=== PATIENT | female | born 1970 ===

== ENCOUNTER → 2021-08-02 | Outpatient (CLI) | payer BC ==
--- NOTE | 2021-08-04 11:24 | MM ---
Reason for exam: screening (asymptomatic). History: Benign excisional biopsy of the right breast, 2014. Physical Findings: A clinical breast exam by your physician is recommended on an annual basis and results should be correlated with mammographic findings. MG 3D Screening Mammo W/Cad Bilateral CC and MLO view(s) were taken. No prior studies available for comparison. The breast tissue is extremely dense which could obscure a lesion on mammography. Finding #1: Architectural distortion in the lower quadrant, posterior position of the right breast consistent with known excision changes. Finding #2: There are typically benign round calcifications in both breasts. ASSESSMENT: Benign, BI-RAD 2 RECOMMENDATION: Routine screening mammogram of both breasts in 1 year. Some advise bilateral ultrasound surveillance in patient with dense tissue.
== END | disposition home or self-care (01) ==
LOC: RADMAMWWP 14:49
PROVIDERS: ATTEND Family Medicine
DX: Z12.39 Encounter for other screening for malignant neoplasm of breast (principal)
CPT/HCPCS: 77063; 77067

== ENCOUNTER 2022-10-30 07:51 | Emergency (ER) | payer BC, OTHER ==
[2022-10-30 07:57] VITALS: TEMP 98.9
[2022-10-30] MEDS ORDERED: ONDANSETRON 4 MG/2 ML VIAL IVP STA (08:11)
[2022-10-30] MEDS ORDERED: SODIUM CHLORIDE 0.9% 1,000 ML IV STA (08:11)
[2022-10-30] MEDS ORDERED: KETOROLAC 15 MG/ML 1 ML VIAL IVP STA ×2 (08:11→09:03)
--- NOTE | 2022-10-30 08:20 | ED ---
Abdominal Pain HPI - General Chief Complaint: Abdominal Pain Stated Complaint: back pain,kidney stone Time Seen by Provider: 10/30/22 07:55 Source: patient, RN notes reviewed Mode of arrival: ambulatory Limitations: no limitations - History of Present Illness Initial Comments: This is a 52-year-old female who presents to the emergency department for left flank and left mid to upper quadrant pain. Patient states that this started around 9:30 PM last evening. Describes it as "labor like pains". States that it starts in the mid to lower back and radiates to the front of her abdomen. The pain is always there, however she states that there are bursts where the pain gets worse. She did have an episode of vomiting last night as well. Denies any history of similar symptoms in the past. Denies any known history of kidney stones. Also denies any changes in bowel/bladder habits. Denies any fevers, chills, sore throat, cough, dyspnea, chest pain, palpitations, diarrhea, or headaches. MD Complaint: abdominal pain, flank pain Onset/Timin -: days(s) Location: L flank - Related Data Previous Rx's Medication Instructions Recorded HYDROcodone/APAP 7.5-325MG [Watson 1 tab PO Q6HR PRN 3 Days #12 tab 10/30/22 7.5-325] Ketorolac [Toradol] 10 mg PO Q6HR PRN #15 tab 10/30/22 Ondansetron Odt [Zofran Odt] 4 mg PO Q8HR PRN #20 tab 10/30/22 Tamsulosin [Flomax] 0.4 mg PO DAILY 7 Days #7 cap 10/30/22 Allergies Allergy/AdvReac Type Severity Reaction Status Date / Time No Known Allergies Allergy Verified 10/30/22 07:57 Review of Systems ROS Statement: Those systems with pertinent positive or pertinent negative responses have been documented in the HPI. ROS Other: All systems not noted in ROS Statement are negative. Past Medical History Past Medical History: No Reported History History of Any Multi-Drug Resistant Organisms: None Reported Past Surgical History: Hysterectomy Past Psychological History: No Psychological Hx Reported Smoking Status: Never smoker Past Alcohol Use History: Occasional Past Drug Use History: None Reported General Exam Limitations: no limitations General appearance: alert, in distress Head exam: Present: atraumatic, normocephalic, normal inspection Respiratory exam: Present: normal lung sounds bilaterally. Absent: respiratory distress, wheezes, rales, rhonchi, stridor Cardiovascular Exam: Present: regular rate, normal rhythm, normal heart sounds. Absent: systolic murmur, diastolic murmur, rubs, gallop, clicks GI/Abdominal exam: Present: soft, tenderness (LUQ and left mid abdomen). Absent: distended Back exam: Present: CVA tenderness (L). Absent: CVA tenderness (R) Neurological exam: Present: alert, oriented X3, CN II-XII intact Psychiatric exam: Present: normal affect, normal mood Skin exam: Present: warm, dry, intact, normal color. Absent: rash Course Vital Signs 10/30/22 10/30/22 10/30/22 07:54 08:30 09:00 Temperature 98.9 F Pulse Rate 73 69 72 Respiratory 20 18 18 Rate Blood Pressure 135/68 143/84 120/63 O2 Sat by Pulse 100 99 100 Oximetry 10/30/22 10/30/22 10/30/22 09:30 10:00 10:30 Temperature Pulse Rate 67 65 69 Respiratory 18 18 18 Rate Blood Pressure 120/63 131/66 122/66 O2 Sat by Pulse 92 L 95 98 Oximetry Medical Decision Making - Medical Decision Making This is a 52-year-old female who presents to the emergency department for left flank and left mid abdominal pain. Was pt. sent in by a medical professional or institution? @ -No Did you speak to anyone other than the patient for history? @ -No Did you review nursing and triage notes? @ -Yes, and I agree, it is accurate with regards to the patient's symptoms. Were old charts reviewed? @ -No Differential Diagnosis? @ -Differential Abdominal Pain Women: Appendicitis, Cholecystitis, diverticulosis, ischemic bowel, pancreatitis, hepa titis, UTI, gastroenteritis, AAA, incarcerated hernia, bowel obstruction, constipation, inflammatory bowel, hepatitis, peptic ulcer disease, splenic infarction, perforated viscus, vulvitis, ovarian torsion, PID, kidney stone, placenta abruption, this is not meant to be an all-inclusive list EKG interpreted by me (3pts min.)? @ -Not obtained X-rays interpreted by me (1pt min.)? @ -Not obtained CT interpreted by me (1pt min.)? @ -Computed tomography scan of the abdomen and pelvis obtained. My interpretation identifies a left ureteral calculus and hydronephrosis. U/S interpreted by me (1pt. min.)? @ -Not obtained What testing was considered but not performed? (CT, X-rays, U/S, labs)? Why? @ -None What meds were considered but not given? Why? @ -None Did you discuss the management of the patient with other professionals? @ -No Did you reconcile home meds? @ -No Was smoking cessation discussed for >3mins.? @ -No Was critical care preformed (if so, how long)? @ -No Were there social determinants of health that impacted care today? How? (Homelessness, low income, unemployed, alcoholism, drug addiction, transportation, low edu. Level, literacy, decrease access to med. care, half-way, rehab)? @ -No Was there de-escalation of care discussed even if they declined? (Discuss DNR or withdrawal of care, Hospice)? @ -No What co-morbidities impacted this encounter? (DM, HTN, Smoking, COPD, CAD, Cancer, CVA, Hep., AIDS, mental health diagnosis, sleep apnea, morbid obesity)? @ -None Was patient admitted / discharged? @ -Discharged. Lab work obtained revealing leukocytosis and no other actionable findings. Urinalysis reveals blood but is negative for signs of infection. Computed tomography scan of the abdomen and pelvis obtained revealing a 3 mm left ureteral calculus in the proximal left ureter. Patient initially given IV fluids, Toradol, and Zofran, however this did not adequately control her pain, and she was given a dose of Watson. Watson did moderately improve her pain, and she felt comfortable for discharge home. She was given a dose of Dilaudid prior to discharge for further symptomatic relief. Prescription for Watson, Toradol, Flomax, and Zofran provided with dosing instructions reviewed.Patient is instructed to take the Toradol with Tylenol if needed and avoid any other fajl-wij-biqmsdo anti-inflammatories such as ibuprofen with the Toradol. Also advised that the Watson is sedating and she should avoid driving or operating machinery when taking this. Patient discharged home with a urine strainer as well. Information for urology follow-up provided. She is instructed to contact them for a follow-up appointment. Undiagnosed new problem with uncertain prognosis? @ -None Drug Therapy requiring intensive monitoring for toxicity (Heparin, Nitro, Insulin, Cardizem)? @ -None Were any procedures done? @ -None Diagnosis/symptom? @ -Left ureteral calculus Acute, or Chronic, or Acute on Chronic? @ -Acute Uncomplicated (without systemic symptoms) or Complicated (systemic symptoms)? @ -Uncomplicated Side effects of treatment? @ -None Exacerbation, Progression, or Severe Exacerbation] @ -Not applicable Poses a threat to life or bodily function? @ -No Return precautions reviewed in depth, the patient is instructed to return to the emergency department with any new, worsening, or concerning symptoms. Patient verbalized understanding. This case was discussed in detail with the attending ED physician, Dr. Padilla. Presentation, findings, and treatment plan discussed in detail as well. - Lab Data Result diagrams: 10/30/22 08:10 10/30/22 08:10 Lab Results 10/30/22 10/30/22 10/30/22 Range/Units 08:10 08:10 08:10 WBC 13.7 H (3.8-10.6) k/uL RBC 5.05 (3.80-5.40) m/uL Hgb 13.1 (11.4-16.0) gm/dL Hct 41.1 (34.0-46.0) % MCV 81.3 (80.0-100.0) fL MCH 25.9 (25.0-35.0) pg MCHC 31.9 (31.0-37.0) g/dL RDW 14.2 (11.5-15.5) % Plt Count 271 (150-450) k/uL MPV 8.3 Neutrophils % 92 % Lymphocytes % 5 % Monocytes % 3 % Eosinophils % 0 % Basophils % 0 % Neutrophils # 12.5 H (1.3-7.7) k/uL Lymphocytes # 0.6 L (1.0-4.8) k/uL Monocytes # 0.4 (0-1.0) k/uL Eosinophils # 0.1 (0-0.7) k/uL Basophils # 0.0 (0-0.2) k/uL Hypochromasia Slight Sodium 139 (137-145) mmol/L Potassium 4.4 (3.5-5.1) mmol/L Chloride 104 (98-107) mmol/L Carbon Dioxide 25 (22-30) mmol/L Anion Gap 10 mmol/L BUN 20 H (7-17) mg/dL Creatinine 0.75 (0.52-1.04) mg/dL Est GFR (CKD-EPI)AfAm >90 (>60 ml/min/1.73 sqM) Est GFR (CKD-EPI)NonAf >90 (>60 ml/min/1.73 sqM) Glucose 132 H (74-99) mg/dL Plasma Lactic Acid Fidel 0.7 (0.7-2.0) mmol/L Calcium 11.6 H (8.4-10.2) mg/dL Total Bilirubin 0.5 (0.2-1.3) mg/dL AST 30 (14-36) U/L ALT 37 H (4-34) U/L Alkaline Phosphatase 55 (38-126) U/L Total Protein 7.3 (6.3-8.2) g/dL Albumin 4.5 (3.5-5.0) g/dL Amylase 56 (30-110) U/L Lipase 106 (23-300) U/L Urine Color Urine Appearance (Clear) Urine pH (5.0-8.0) Ur Specific Elmore (1.001-1.035) Urine Protein (Negative) Urine Glucose (UA) (Negative) Urine Ketones (Negative) Urine Blood (Negative) Urine Nitrite (Negative) Urine Bilirubin (Negative) Urine Urobilinogen (<2.0) mg/dL Ur Leukocyte Esterase (Negative) Urine RBC (0-5) /hpf Urine WBC (0-5) /hpf Ur Squamous Epith Cells (0-4) /hpf 10/30/22 Range/Units 08:10 WBC (3.8-10.6) k/uL RBC (3.80-5.40) m/uL Hgb (11.4-16.0) gm/dL Hct (34.0-46.0) % MCV (80.0-100.0) fL MCH (25.0-35.0) pg MCHC (31.0-37.0) g/dL RDW (11.5-15.5) % Plt Count (150-450) k/uL MPV Neutrophils % % Lymphocytes % % Monocytes % % Eosinophils % % Basophils % % Neutrophils # (1.3-7.7) k/uL Lymphocytes # (1.0-4.8) k/uL Monocytes # (0-1.0) k/uL Eosinophils # (0-0.7) k/uL Basophils # (0-0.2) k/uL Hypochromasia Sodium (137-145) mmol/L Potassium (3.5-5.1) mmol/L Chloride (98-107) mmol/L Carbon Dioxide (22-30) mmol/L Anion Gap mmol/L BUN (7-17) mg/dL Creatinine (0.52-1.04) mg/dL Est GFR (CKD-EPI)AfAm (>60 ml/min/1.73 sqM) Est GFR (CKD-EPI)NonAf (>60 ml/min/1.73 sqM) Glucose (74-99) mg/dL Plasma Lactic Acid Fidel (0.7-2.0) mmol/L Calcium (8.4-10.2) mg/dL Total Bilirubin (0.2-1.3) mg/dL AST (14-36) U/L ALT (4-34) U/L Alkaline Phosphatase (38-126) U/L Total Protein (6.3-8.2) g/dL Albumin (3.5-5.0) g/dL Amylase (30-110) U/L Lipase (23-300) U/L Urine Color Light Yellow Urine Appearance Cloudy H (Clear) Urine pH 7.0 (5.0-8.0) Ur Specific Elmore 1.012 (1.001-1.035) Urine Protein Negative (Negative) Urine Glucose (UA) Negative (Negative) Urine Ketones 3+ H (Negative) Urine Blood Large H (Negative) Urine Nitrite Negative (Negative) Urine Bilirubin Negative (Negative) Urine Urobilinogen <2.0 (<2.0) mg/dL Ur Leukocyte Esterase Negative (Negative) Urine RBC 75 H (0-5) /hpf Urine WBC 8 H (0-5) /hpf Ur Squamous Epith Cells 2 (0-4) /hpf - Radiology Data Radiology results: report reviewed, image reviewed Disposition Clinical Impression: Left ureteral calculus, Hydronephrosis, left Disposition: HOME SELF-CARE Instructions (If sedation given, give patient instructions): Renal Colic (ED), Hydronephrosis (ED), Ureteral Stones (ED) Additional Instructions: Return to the emergency department with any new, worsening, or concerning symptoms. Take the Toradol with Tylenol as needed for pain relief. If you choose to take the Toradol, do not take it with any other ljxt-toc-simygar anti- inflammatories such as ibuprofen, take one or the other. Take the Watson sparingly when your pain is the most severe, and be aware that it may make you drowsy and you should avoid driving or operating machinery when taking this. You can take the Zofran up to every 8 hours as needed for nausea and vomiting. Contact urology as listed below for a follow-up appointment and reevaluation of ongoing symptoms. Follow up with your primary care provider in 1-2 days. Prescriptions: Tamsulosin [Flomax] 0.4 mg PO DAILY 7 Days #7 cap HYDROcodone/APAP 7.5-325MG [Watson 7.5-325] 1 tab PO Q6HR PRN 3 Days #12 tab PRN Reason: Pain Ketorolac [Toradol] 10 mg PO Q6HR PRN #15 tab PRN Reason: Pain Ondansetron Odt [Zofran Odt] 4 mg PO Q8HR PRN #20 tab PRN Reason: Nausea And Vomiting Is patient prescribed a controlled substance at d/c from ED?: Yes When asked, does pt state using other controlled substances?: No If prescribed controlled substance>3 days was MAPS reviewed?: Prescribed <3 Days Referrals: aNthalie Lyman DO [Primary Care Provider] - 1-2 days Garret Hall MD [STAFF PHYSICIAN] - 1-2 days
[2022-10-30 08:31] LABS: ALT 37 U/L (4-34); AST 30 U/L (14-36); African American GFR (CKD) >90 (>60 ml/min/1.73 sqM); Albumin 4.5 g/dL (3.5-5.0); Alkaline Phosphatase 55 U/L (38-126); Amylase 56 U/L (30-110); Anion Gap 10 mmol/L; Blood Urea Nitrogen 20 mg/dL (7-17); Calcium 11.6 mg/dL (8.4-10.2); Carbon Dioxide 25 mmol/L (22-30); Chloride 104 mmol/L (98-107); Glucose 132 mg/dL (74-99); Lipase 106 U/L (23-300); Non-African American GFR(CKD) >90 (>60 ml/min/1.73 sqM); Potassium 4.4 mmol/L (3.5-5.1); Sodium 139 mmol/L (137-145); Total Bilirubin 0.5 mg/dL (0.2-1.3); Total Protein 7.3 g/dL (6.3-8.2)
[2022-10-30 08:32] LABS: Basophils % (A) 0 %; Eosinophils # (A) 0.1 k/uL (0-0.7); Eosinophils % (A) 0 %; HCT 41.1 % (34.0-46.0); HGB 13.1 gm/dL (11.4-16.0); Hypochromasia Slight; Lymphocytes # (A) 0.6 k/uL (1.0-4.8); Lymphocytes % (A) 5 %; MCH 25.9 pg (25.0-35.0); MCHC 31.9 g/dL (31.0-37.0); MCV 81.3 fL (80.0-100.0); Mean Platelet Volume 8.3; Monocytes # (A) 0.4 k/uL (0-1.0); Monocytes % (A) 3 %; Neutrophils # (A) 12.5 k/uL (1.3-7.7); Neutrophils % (A) 92 %; Platelet Count 271 k/uL (150-450); RBC 5.05 m/uL (3.80-5.40); RDW 14.2 % (11.5-15.5); WBC 13.7 k/uL (3.8-10.6)
[2022-10-30 08:39] LABS: Appearance,Urine Cloudy (Clear); Bilirubin,Urine Negative (Negative); Blood,Urine Large (Negative); Color,Urine Light Yellow; Glucose,Urine (UA) Negative (Negative); Ketones,Urine 3+ (Negative); Leukocyte Esterase,Urine Negative (Negative); Nitrite,Urine Negative (Negative); Protein,Urine Negative (Negative); Specific Gravity,Urine 1.012 (1.001-1.035); Urobilinogen,Urine <2.0 mg/dL (<2.0)
[2022-10-30 08:48] LABS: RBC,Urine 75 /hpf (0-5); Squamous Epithelial Cell,Urine 2 /hpf (0-4); WBC,Urine 8 /hpf (0-5)
--- NOTE | 2022-10-30 08:48 | CT ---
EXAMINATION TYPE: CT abdomen pelvis w con CT DLP: 836.5 mGycm, Automated exposure control for dose reduction was used. DATE OF EXAM: 10/30/2022 8:37 AM COMPARISON: None CLINICAL INDICATION:Female, 52 years old with history of Left flank and LLQ pain; left flank pain TECHNIQUE: Standard CT of the abdomen and pelvis following the administration of 100 cc of Isovue 3 00 IV contrast material. Coronal and sagittal reformats were performed. FINDINGS: LOWER CHEST: Posterior dependent subsegmental atelectasis is noted. Trace pericardial effusion. ABDOMEN LIVER: Few scattered cystic lesions with largest in the right hepatic dome measuring up to 1.6 cm. T his appears to fill-in on the delayed phase suggesting a hemangioma. GALLBLADDER AND BILE DUCTS: Intrahepatic biliary ductal dilatation. Gallbladder appears unremarkable. No extra hepatic biliary ductal dilatation. PANCREAS: Unremarkable. SPLEEN: Unremarkable. ADRENAL GLANDS: Unremarkable. KIDNEYS AND URETERS: No hydronephrosis involving the right kidney. Couple of subcentimeter hypodense foci within the right kidney which are too small to characterize and likely represent cysts. Nonobstr uctive right renal 2 mm calculus. Contrast is demonstrated within the collecting system on the delaye d phase. Mild left hydronephrosis with an obstructive 3 m calculus in the proximal left ureter just past the u reteropelvic junction. Edematous appearance of the left kidney. Additional nonobstructive left renal calculi with largest measuring up to 3 mm. Subpleural hypodense focus within the left mid kidney whic h is too small to characterize but likely represents a cyst. No contrast demonstrated within the agapito ecting system on the delayed phase. PELVIS BLADDER: Under distended, limiting evaluation. REPRODUCTIVE: The uterus is surgically absent. ABDOMEN & PELVIS STOMACH AND BOWEL: Stomach and duodenum are unremarkable. No focal bowel wall thickening or surroundi ng inflammatory changes. No evidence of bowel obstruction. PERITONEUM: No evidence of pneumoperitoneum or free fluid. VASCULATURE: No evidence of aortic aneurysm. MUSCULOSKELETAL: No acute osseous abnormalities LYMPH NODES: No gross evidence for lymphadenopathy. SOFT TISSUE/ABDOMINAL WALL: Unremarkable IMPRESSION: 1. Mild left hydroureteronephrosis with a 3 mm obstructing calculus in the proximal left ureter just past the ureteropelvic junction. 2. Nonobstructive bilateral renal calculi. 3. Mild intrahepatic biliary duct dilatation with a few scattered hypodense hepatic foci likely repre senting cysts and/or hemangiomas. Consider further evaluation with outpatient MRCP/MR abdomen.
[2022-10-30] MEDS ORDERED: TAMSULOSIN 0.4 MG CAP.ER.24H PO STA (09:03)
[2022-10-30] MEDS ORDERED: HYDROcodone/APAP 7.5-325MG 1 EACH TAB PO ONE (09:03)
[2022-10-30 09:25] VITALS: RESP 18
[2022-10-30] MEDS ORDERED: HYDROmorphone 1 MG/ML 1 ML SYRINGE IVP STA (10:09)
[2022-10-30 10:35] VITALS: BP 122/66; PULSE 69
== END 2022-10-30 10:43 | disposition home or self-care (01) ==
LOC: EC 07:51
DX: N13.2 Hydronephrosis with renal and ureteral calculous obstruction (principal)
CPT/HCPCS: 36415; 80053; 82150; 83605; 83690; 85025; 81001; 74177; 99284; 96374; 96375 ×2; 96376; 96361 ×2; J2405; J1170; J1885; Q9967

== ENCOUNTER → 2023-01-08 | Outpatient (CLI) | payer OTHER ==
--- NOTE | 2023-01-08 11:20 | CT ---
EXAMINATION TYPE: CT upper extremity LT wo con CT DLP: 286.9 mGycm, Automated exposure control for dose reduction was used. DATE OF EXAM: 01/08/2023 10:50 AM COMPARISON: None CLINICAL INDICATION:Female, 52 years old with history of S52.032A DISP FX OF OLECRAN LEFT ULNA; PHH, left elbow olecranon fracture surgery tomorrow TECHNIQUE: Axial images were obtained of the CT upper extremity LT wo con, Additional coronal and sag ittal reformatted images and soft tissue and bone window were obtained for review. 3-D reconstruction was created on a separate workstation. Contrast used: mL of , (None if empty) Oral contrast used: (None if empty) FINDINGS: Comminuted displaced olecranon fracture with additional fracture line more distally interar ticular. Displacement up to 11 mm. The other fracture fragment more distally is nondisplaced series 1 1 image 26.. Is a small joint effusion. No additional fractures identified. No radiopaque foreign bod ies. IMPRESSION: Comminuted olecranon fracture with one large fragment which is displaced and another that is more dis tally and nondisplaced. The other osseous structures appear intact.
== END | disposition home or self-care (01) ==
LOC: RADCTMAIN 10:19
PROVIDERS: ATTEND Orthopaedic Surgery
DX: S52.032A Displaced fracture of olecranon process with intraarticular extension of left ulna, initial encounter for closed fracture (principal); X58.XXXA Exposure to other specified factors, initial encounter

== ENCOUNTER → 2023-02-28 | Outpatient (CLI) | payer OTHER ==
--- NOTE | 2023-03-01 13:14 | MM ---
Reason for Exam: Screening (asymptomatic). Last mammogram was performed 1 year(s) and 6 month(s) ago. Patient History: Menarche at age 17. First Full-Term at age 20. Hysterectomy at age 41. 2015, Benign Excisional Biopsy on the right side. Risk Values: Mahnaz 5 year model risk: 0.8%. NCI Lifetime model risk: 6.9%. Prior Study Comparison: 08/02/2021 Bilateral Screening Mammogram, [facility]. Tissue Density: The breast tissue is heterogeneously dense. This may lower the sensitivity of mammography. Findings: Analyzed By CAD. There is no suspicious group of microcalcifications or new suspicious mass. Overall Assessment: Negative, BI-RAD 1 Management: Screening Mammogram of both breasts in [address] [facility] will attempt to contact patient to return for supplemental views and ultrasound if indicated. Patient should continue monthly self-breast exams. A clinical breast exam by your physician is recommended on an annual basis. This exam should not preclude additional follow-up of suspicious palpable abnormalities. Note on Mahnaz scores and lifetime risk: 1. A Mahnaz score greater than 3% is considered moderate risk. If this is the case, consider specialist referral to assess eligibility for a risk reducing agent. 2. If overall lifetime risk for the development of breast cancer is 20% or higher, the patient may qualify for future screening with alternating mammogram and breast MRI. Electronically signed and approved by: Sha Love DO
== END | disposition home or self-care (01) ==
LOC: RADMAMWWP 07:00
PROVIDERS: ATTEND Family Medicine
DX: Z12.31 Encounter for screening mammogram for malignant neoplasm of breast (principal)
CPT/HCPCS: 77063; 77067